=== PATIENT | male | born 1980 | race Caucasian/White ===

== ENCOUNTER 2023-12-27 19:49 | Emergency (ER) | payer SELFPAY ==
[~2023-12-27] VITALS: Ht 172.7 cm; Wt 65.8 kg
[2023-12-27 20:04] VITALS: BP 147/88; PULSE 118; RESP 20; TEMP 97.8; O2SAT 98
== END 2023-12-27 21:54 | disposition left against medical advice (07) ==
LOC: MED 19:49
DX: M25.522 Pain in left elbow (principal); R22.32 Localized swelling, mass and lump, left upper limb
CPT/HCPCS: 73080; 90471; 90715; 99283